=== PATIENT | male | born 1940 | race African-American/Black ===

== ENCOUNTER 2018-02-05 17:46 | Inpatient (IN) ==
[2018-02-05] MEDS ORDERED: SODIUM CHLORIDE 0.9% 1,000 ML IV STA (18:35)
[2018-02-05] MEDS ORDERED: MECLIZINE 25 MG TABLET PO STA (18:35)
[2018-02-05] MEDS ORDERED: ONDANSETRON 4 MG/2 ML VIAL IV STA (18:35)
[2018-02-05 20:37] LABS: Calcium 8.6 MG/DL (8.5-10.1); Osmolality,Calculated 281.5 MOS/KG (273-304); Potassium 4.1 MMOL/L (3.5-5.1)
[2018-02-05 20:52] LABS: Basophils % 0.2 % (0.0-0.8); Hematocrit 42.2 VOL% (42.0-52.0); Hemoglobin 13.5 GM/DL (14.0-18.0); Immature Granulocytes % 0.4 %; Immature Granulocytes Absolute 0.04 #; Lymphocytes # 2.2 10*3/uL (1.4-4.0); Lymphocytes % 20.7 % (21.2-54.2); Mean Corpuscular Hemoglobin 29 PG (27-34); Mean Corpuscular Volume 89.6 FL (87-102); Mean Platelet Volume 11.9 FL (9.6-12.0); Monocytes # 0.7 10*3/uL (0.11-0.8); Monocytes % 6.6 % (1.7-12.7); Neutrophils # 7.8 10*3/uL (1.4-7.4); Neutrophils % 72.1 % (38.7-73.9); Platelet Count 190 T/CUMM (130-400); Red Blood Count 4.71 MC/CUMM (3.8-5.5); Red Cell Distribution Width 14.6 % (9.3-17.3); White Blood Count 10.8 T/CUMM (4-12)
[2018-02-05] MEDS ORDERED: PROMETHAZINE 25 MG/1 ML VIAL IM PRN (22:04)
[2018-02-05] MEDS ORDERED: DEXTROSE 50% 25 GM/50 ML VIAL IV PRN (22:04)
[2018-02-05] MEDS ORDERED: ONDANSETRON 4 MG/2 ML VIAL IV PRN (22:04)
[2018-02-05] MEDS ORDERED: PROMETHAZINE 25 MG TABLET PO PRN (22:04)
[2018-02-05] MEDS ORDERED: GLUCAGON 1 MG VIAL IM PRN (22:04)
[2018-02-05] MEDS ORDERED: diphenhydrAMINE CAP 25 MG CAPSULE PO PRN (22:04)
[2018-02-05] MEDS ORDERED: ACETAMINOPHEN 325 MG TABLET PO PRN (22:04)
[2018-02-05] MEDS ORDERED: MECLIZINE 25 MG TABLET PO PRN (23:20)
[2018-02-05] MEDS: SODIUM CHLORIDE 0.9% 1,000 ML IV SCH (23:58)
[2018-02-06 07:32] LABS: Albumin 3.2 G/DL (3.4-5.0); Bilirubin,Total 0.5 MG/DL (0.2-1.0); Calcium 8.2 MG/DL (8.5-10.1); Potassium 3.3 MMOL/L (3.5-5.1); Risk Ratio 2.39; Thyroid Stimulating Hormone 0.318 uIU/ml (0.358-3.74); Total Protein 6.9 G/DL (6.4-8.3)
[2018-02-06] MEDS: INSULIN LISPRO 100 UNIT/ML SUBCUT SCH ×4 (07:39→20:27)
[2018-02-06] MEDS ORDERED: PNEUMOCOCCAL VACCINE (13 VALENT) 0.5 ML SYRINGE IM ONE (09:00)
[2018-02-06] MEDS: amLODIPine 10 MG TABLET PO SCH (09:23)
[2018-02-06] MEDS: VALSARTAN 160 MG TABLET PO SCH (09:23)
[2018-02-06] MEDS: FLUTICASONE 50 MCG NASAL SPRAY 16 GM BOTTLE BOTH NARES SCH ×2 (13:40→20:27)
[2018-02-06] MEDS: ENOXAPARIN 40 MG/0.4 ML SYRINGE SUBCUT SCH (13:41)
[2018-02-06] MEDS: POTASSIUM CHLORIDE 20 MEQ TABLET PO SCH (13:41)
[2018-02-06] MEDS: PIOGLITAZONE 15 MG TABLET PO SCH (13:42)
[2018-02-06] MEDS: PANTOPRAZOLE 40 MG TABLET PO SCH (13:42)
[2018-02-06] MEDS: SODIUM CHLORIDE 0.9% 1,000 ML IV SCH ×2 (13:47→22:42)
[2018-02-06] MEDS ORDERED: methylPREDNISolone 4 MG TABLET PO SCH (16:00)
[2018-02-06] MEDS: MECLIZINE 25 MG TABLET PO SCH (20:25)
[2018-02-06] MEDS: [UNRECOGNIZED DRUG - OTHER] PO SCH ×2 (20:26→22:29)
[2018-02-06] MEDS: METHYLPREDNISOLONE 4 MG PO SCH ×2 (20:26→22:29)
[2018-02-07 04:24] LABS: Osmolality,Calculated 287.3 MOS/KG (273-304); Potassium 3.7 MMOL/L (3.5-5.1)
[2018-02-07] MEDS: SODIUM CHLORIDE 0.9% 1,000 ML IV SCH ×2 (05:19→09:21)
[2018-02-07] MEDS: POTASSIUM CHLORIDE 20 MEQ TABLET PO SCH (09:21)
[2018-02-07] MEDS: VALSARTAN 160 MG TABLET PO SCH (09:21)
[2018-02-07] MEDS: PANTOPRAZOLE 40 MG TABLET PO SCH (09:21)
[2018-02-07] MEDS: amLODIPine 10 MG TABLET PO SCH (09:22)
[2018-02-07] MEDS: MECLIZINE 25 MG TABLET PO SCH (09:22)
[2018-02-07] MEDS: FLUTICASONE 50 MCG NASAL SPRAY 16 GM BOTTLE BOTH NARES SCH (09:22)
[2018-02-07] MEDS: PIOGLITAZONE 15 MG TABLET PO SCH (09:38)
[2018-02-07] MEDS: ENOXAPARIN 40 MG/0.4 ML SYRINGE SUBCUT SCH (09:40)
[2018-02-07] MEDS: INSULIN LISPRO 100 UNIT/ML SUBCUT SCH (09:40)
[2018-02-07 16:26] VITALS: BP 169/75
== END 2018-02-07 15:56 | disposition home or self-care (01) | DRG 149 ==
LOC: EDBD → EDUNIT# → N.ED 17:46 → N.EDINP 22:04 → N.4E 23:17